=== PATIENT | female | born 1975 | race Two or more races ===

== ENCOUNTER 2018-06-05 07:50 | Outpatient (CLI) | payer OTHER ==
[~2018-06-05 07:50] MED LIST: SYNTHROID100 MCG PO; SYNTHROID112 MCG PO; SYNTHROID75 MCG PO; TOBRADEX EYE DR10 ML OP; ZOLOFT25 MG PO
== END 2018-06-05 07:55 | disposition home or self-care (01) ==
LOC: LAB 07:50
DX: E88.89 Other specified metabolic disorders (principal); Z12.31 Encounter for screening mammogram for malignant neoplasm of breast; Z12.11 Encounter for screening for malignant neoplasm of colon; E06.3 Autoimmune thyroiditis; E03.8 Other specified hypothyroidism; E04.1 Nontoxic single thyroid nodule; J45.20 Mild intermittent asthma, uncomplicated; E66.09 Other obesity due to excess calories

== ENCOUNTER 2019-11-08 07:57 | Outpatient (CLI) | payer OTHER | END 2019-11-08 08:03 | disposition home or self-care (01) | LOC: LAB 07:57 | PROVIDERS: ATTEND Internal Medicine Cardiovascular Disease | DX: E03.8 Other specified hypothyroidism (principal); I10 Essential (primary) hypertension; E11.9 Type 2 diabetes mellitus without complications; E78.2 Mixed hyperlipidemia; E55.9 Vitamin D deficiency, unspecified ==

== ENCOUNTER 2019-11-08 09:12 | Outpatient (CLI) | payer OTHER | END 2019-11-08 09:25 | disposition home or self-care (01) | LOC: MAMO-SONO 09:12 | PROVIDERS: ATTEND Internal Medicine Cardiovascular Disease | DX: Z12.31 Encounter for screening mammogram for malignant neoplasm of breast (principal); E03.8 Other specified hypothyroidism ==

== ENCOUNTER 2019-12-13 08:20 | Outpatient (CLI) | payer OTHER | END 2019-12-13 15:00 | disposition home or self-care (01) | LOC: PPH VACUNA 08:20 | DX: Z23 Encounter for immunization (principal) ==

== ENCOUNTER 2020-01-23 09:16 | Outpatient (CLI) | payer OTHER | END 2020-01-23 15:00 | disposition home or self-care (01) | LOC: LAB 09:16 | PROVIDERS: ATTEND Surgery | DX: E03.8 Other specified hypothyroidism (principal); E11.9 Type 2 diabetes mellitus without complications; E54 Ascorbic acid deficiency; E55.9 Vitamin D deficiency, unspecified; D51.8 Other vitamin B12 deficiency anemias; B96.81 Helicobacter pylori [H. pylori] as the cause of diseases classified elsewhere; E78.49 Other hyperlipidemia; D46.4 Refractory anemia, unspecified; G47.33 Obstructive sleep apnea (adult) (pediatric); R09.2 Respiratory arrest ==

== ENCOUNTER 2020-02-07 07:40 | Outpatient (CLI) | payer OTHER | END 2020-02-07 07:49 | disposition home or self-care (01) | LOC: SONOGRAMA 07:40 → MAMO-SONO 07:45 → SONOGRAMA 07:49 | PROVIDERS: ATTEND Surgery | DX: K76.0 Fatty (change of) liver, not elsewhere classified (principal) ==

== ENCOUNTER 2020-07-04 06:36 | Outpatient (CLI) | payer OTHER | END 2020-07-04 07:05 | disposition home or self-care (01) | LOC: RAD 06:36 → LAB 06:36 | PROVIDERS: ATTEND Internal Medicine Cardiovascular Disease | DX: I50.42 Chronic combined systolic (congestive) and diastolic (congestive) heart failure (principal); I20.8 Other forms of angina pectoris; R00.2 Palpitations; E66.01 Morbid (severe) obesity due to excess calories; M89.8X8 Other specified disorders of bone, other site; Z01.810 Encounter for preprocedural cardiovascular examination ==

== ENCOUNTER 2020-09-18 12:40 | Outpatient (CLI) | payer OTHER | END 2020-09-18 12:42 | disposition home or self-care (01) | LOC: LAB 12:40 | PROVIDERS: ATTEND Internal Medicine Pulmonary Disease | DX: J45.30 Mild persistent asthma, uncomplicated (principal); I50.42 Chronic combined systolic (congestive) and diastolic (congestive) heart failure; I20.9 Angina pectoris, unspecified; R00.2 Palpitations; E66.01 Morbid (severe) obesity due to excess calories; I20.8 Other forms of angina pectoris ==

== ENCOUNTER → 2020-11-20 08:05 | Outpatient (CLI) | payer OTHER | END | disposition home or self-care (01) | LOC: LAB 08:05 | PROVIDERS: ATTEND Surgery | DX: E03.8 Other specified hypothyroidism (principal); D46.4 Refractory anemia, unspecified; E11.9 Type 2 diabetes mellitus without complications; E55.9 Vitamin D deficiency, unspecified; D51.8 Other vitamin B12 deficiency anemias; R19.5 Other fecal abnormalities; Z11.59 Encounter for screening for other viral diseases; K29.60 Other gastritis without bleeding ==

== ENCOUNTER 2020-11-21 07:38 | Outpatient (CLI) | payer OTHER | END 2020-11-21 07:39 | disposition home or self-care (01) | LOC: LAB 07:38 | PROVIDERS: ATTEND Surgery | DX: K29.60 Other gastritis without bleeding (principal); Z11.59 Encounter for screening for other viral diseases ==

== ENCOUNTER 2020-11-21 07:39 | Outpatient (CLI) | payer OTHER | END 2020-11-21 07:44 | disposition home or self-care (01) | LOC: SONOGRAMA 07:39 | DX: R10.84 Generalized abdominal pain (principal); K76.0 Fatty (change of) liver, not elsewhere classified; R07.89 Other chest pain ==

== ENCOUNTER 2020-12-17 08:00 | Outpatient (CLI) | payer OTHER | END 2020-12-17 08:30 | disposition home or self-care (01) | LOC: PPH VACUNA 08:00 | PROVIDERS: ATTEND Emergency Medicine Pediatric Emergency Medicine | DX: Z23 Encounter for immunization (principal) ==

== ENCOUNTER 2020-12-20 10:59 | Outpatient (CLI) | payer OTHER | END 2020-12-20 11:04 | disposition home or self-care (01) | LOC: NUCLEAR 10:59 | PROVIDERS: ATTEND Obstetrics & Gynecology | DX: I82.403 Acute embolism and thrombosis of unspecified deep veins of lower extremity, bilateral (principal) ==

== ENCOUNTER → 2021-01-22 07:57 | Outpatient (CLI) | payer OTHER | END | disposition home or self-care (01) | LOC: LAB 07:57 | PROVIDERS: ATTEND Surgery | DX: E11.9 Type 2 diabetes mellitus without complications (principal); E03.8 Other specified hypothyroidism; D46.4 Refractory anemia, unspecified; E54 Ascorbic acid deficiency; E55.9 Vitamin D deficiency, unspecified; D51.9 Vitamin B12 deficiency anemia, unspecified; R19.5 Other fecal abnormalities; Z11.59 Encounter for screening for other viral diseases ==

== ENCOUNTER → 2021-01-23 08:18 | Outpatient (CLI) | payer OTHER | END | disposition home or self-care (01) | LOC: LAB 08:18 | PROVIDERS: ATTEND Surgery | DX: R19.5 Other fecal abnormalities (principal); E11.9 Type 2 diabetes mellitus without complications; D64.4 Congenital dyserythropoietic anemia; E03.8 Other specified hypothyroidism; E55.9 Vitamin D deficiency, unspecified; E54 Ascorbic acid deficiency; D51.8 Other vitamin B12 deficiency anemias; Z11.59 Encounter for screening for other viral diseases ==

== ENCOUNTER 2021-03-10 23:20 | Day surgery (SDC) | payer OTHER ==
[~2021-03-10] VITALS: Ht 149.9 cm; Wt 108.9 kg
[2021-03-10] MEDS ORDERED: SYNTHROID125 MCG (23:22)
[2021-03-11] MEDS ORDERED: MILK OF MA400 MG/5 M PO (15:32)
[2021-03-11] MEDS ORDERED: ANUSOL-HC30 G2 TOP (15:33)
== END 2021-03-11 19:00 | disposition home or self-care (01) ==
LOC: CIR.AMB 23:20 → ER 23:23 → CIR.AMB 03-11 08:00 → ER 03-11 11:53 → SEC-K 03-11 11:53 → CIR.AMB 03-11 11:53 → EDSTATUS 03-11 14:00 → CIR.AMB 03-11 19:00 → SEC-K 03-12 16:43 → O/R 03-12 16:43
PROVIDERS: ATTEND Surgery
DX: K56.41 Fecal impaction (principal); Z20.822 Contact with and (suspected) exposure to COVID-19

== ENCOUNTER 2021-11-18 09:15 | Outpatient (CLI) | payer OTHER ==
[~2021-11-18 09:15] MED LIST changes: +ANUSOL-HC30 G2 TOP; +MILK OF MA400 MG/5 M PO; +SYNTHROID125 MCG
== END 2021-11-18 09:17 | disposition home or self-care (01) ==
LOC: LAB 09:15
PROVIDERS: ATTEND Surgery
DX: D64.9 Anemia, unspecified (principal); E11.9 Type 2 diabetes mellitus without complications; E03.9 Hypothyroidism, unspecified; E54 Ascorbic acid deficiency; E55.9 Vitamin D deficiency, unspecified; D51.9 Vitamin B12 deficiency anemia, unspecified; B96.81 Helicobacter pylori [H. pylori] as the cause of diseases classified elsewhere

== ENCOUNTER 2021-12-11 15:07 | Outpatient (CLI) | payer OTHER | END 2021-12-11 15:12 | disposition home or self-care (01) | LOC: PPH VACUNA 15:07 | PROVIDERS: ATTEND Emergency Medicine Pediatric Emergency Medicine | DX: Z23 Encounter for immunization (principal) ==

== ENCOUNTER 2022-07-01 14:38 | Outpatient (CLI) | payer OTHER | END 2022-07-01 14:50 | disposition home or self-care (01) | LOC: SONOGRAMA 14:38 | PROVIDERS: ATTEND General Practice | DX: E06.3 Autoimmune thyroiditis (principal); E03.8 Other specified hypothyroidism; E04.0 Nontoxic diffuse goiter; Z68.33 Body mass index [BMI] 33.0-33.9, adult; Z98.84 Bariatric surgery status ==

== ENCOUNTER 2022-07-21 10:45 | Outpatient (CLI) | payer OTHER | END 2022-07-21 10:50 | disposition home or self-care (01) | LOC: LAB 10:45 | PROVIDERS: ATTEND General Practice | DX: E06.3 Autoimmune thyroiditis (principal); Z68.33 Body mass index [BMI] 33.0-33.9, adult; E04.0 Nontoxic diffuse goiter; Z98.84 Bariatric surgery status ==

== ENCOUNTER 2023-01-15 11:45 | Outpatient (CLI) | payer OTHER ==
[2023-01-15 12:43] LABS: HEMATOCRIT 40.6 % (36.0-45.00); HEMOGLOBIN 13.2 g/dL (12.0-15.00); MEAN CELL VOLUME 88.3 fL (80.00-100.00); MEAN CORPUSCULAR HEMOGLOBIN 28.8 pg (27.00-32.0); MEAN CORPUSCULAR HGB CONC 32.6 g/dl (32.0-36.0); PLATELET COUNT 311 K/uL (150-450); RED BLOOD COUNT 4.59 M/uL (4.00-6.00); RED CELL DISTRIBUTION WIDTH 14.6 % (11.5-14.5)
[2023-01-15 13:18] LABS: ALBUMIN 3.9 gm/dL (3.4-5.0); BILIRUBIN TOTAL 0.85 mg/dL (0.3-1.2); CALCIUM 8.9 mg/dL (8.5-10.1); CHOL HDL RATIO 2.4 (0-5.0); CREATININE SERUM 0.56 mg/dL (0.55-1.02); GFR 116.54; GLOBULINA 3.6 G/DL (2.4-3.5); POTASSIUM 4.66 mEq/L (3.5-5.1); T4 FREE 1.03 NG/ML (0.76-1.46); TOTAL PROTEIN 7.5 gm/dL (6.4-8.2); TSH 0.969 uIU/mL (0.358-3.74)
[2023-01-15 13:40] LABS: URINE APPEARANCE Cloudy; URINE BILIRRUBIN Negative (NEGATIVE); URINE BLOOD Negative; URINE COLOR Yellow; URINE GLUCOSE Negative (NEGATIVE); URINE LEUKOCYTE Small; URINE NITRATE Positive; URINE PROTEIN Negative (NEGATIVE)
[2023-01-15 13:41] LABS: URINE EPITHELIAL CELLS 32.3 uL (0.0-38.8); URINE RBC 56.1 uL (0.0-20.8); URINE WBC 138.5 uL (0.0-23.2)
[2023-01-15 13:43] LABS: URINE BACTERIA > 9821.2 uL (0.0-1933)
== END 2023-01-15 11:46 | disposition home or self-care (01) ==
LOC: LAB 11:45
PROVIDERS: ATTEND Specialist
DX: D50.9 Iron deficiency anemia, unspecified (principal); E83.51 Hypocalcemia; N39.0 Urinary tract infection, site not specified; E78.00 Pure hypercholesterolemia, unspecified; Z13.1 Encounter for screening for diabetes mellitus; E03.9 Hypothyroidism, unspecified; Z11.3 Encounter for screening for infections with a predominantly sexual mode of transmission

== ENCOUNTER 2023-01-15 12:40 | Outpatient (CLI) | payer OTHER | END 2023-01-15 13:10 | disposition home or self-care (01) | LOC: MAMO-SONO 12:40 | PROVIDERS: ATTEND Specialist | DX: R10.2 Pelvic and perineal pain (principal); Z12.31 Encounter for screening mammogram for malignant neoplasm of breast; N63.0 Unspecified lump in unspecified breast ==

== ENCOUNTER 2024-01-18 10:30 | Outpatient (CLI) | payer OTHER | END 2024-01-18 11:00 | disposition home or self-care (01) | LOC: PPH VACUNA 10:30 | PROVIDERS: ATTEND Emergency Medicine Pediatric Emergency Medicine | DX: Z23 Encounter for immunization (principal) ==

== ENCOUNTER → 2024-03-09 10:50 | Outpatient (CLI) | payer OTHER ==
[2024-03-09 11:55] LABS: HEMATOCRIT 37.2 % (36.0-45.00); HEMOGLOBIN 12.2 g/dL (12.0-15.00); MEAN CELL VOLUME 81.2 fL (80.00-100.00); MEAN CORPUSCULAR HEMOGLOBIN 26.6 pg (27.00-32.0); MEAN CORPUSCULAR HGB CONC 32.7 g/dl (32.0-36.0); PLATELET COUNT 327 K/uL (150-450); RED BLOOD COUNT 4.58 M/uL (4.00-6.00); RED CELL DISTRIBUTION WIDTH 16.2 % (11.5-14.5)
[2024-03-09 12:53] LABS: ALBUMIN 3.6 gm/dL (3.4-5.0); BILIRUBIN TOTAL 0.43 mg/dL (0.3-1.2); CALCIUM 8.5 mg/dL (8.5-10.1); CHOL HDL RATIO 2.7 (0-5.0); CREATININE SERUM 0.63 mg/dL (0.55-1.02); GFR 101.29; POTASSIUM 4.65 mEq/L (3.5-5.1); T4 TOTAL 8.13 UG/DL (4.8-13.9); TOTAL PROTEIN 7.6 gm/dL (6.4-8.2); TSH 1.48 uIU/mL (0.358-3.74)
[2024-03-09 13:29] LABS: T3 TOTAL 0.874 ng/ml (0.846-2.02); VITAMIN D3 25 HYDROXY 20.19 ng/ml (30-120)
[2024-03-09 18:39] LABS: PH,URINE 5.5 (5.0-8.0); URINE APPEARANCE Clear; URINE BILIRRUBIN Negative (NEGATIVE); URINE BLOOD Negative; URINE COLOR Dark Yellow; URINE GLUCOSE Negative (NEGATIVE); URINE KETONE Trace (NEGATIVE); URINE LEUKOCYTE Negative; URINE NITRATE Negative; URINE PROTEIN Trace (NEGATIVE)
[2024-03-09 18:43] LABS: URINE BACTERIA 1008.3 uL (0.0-1933); URINE EPITHELIAL CELLS 12.1 uL (0.0-38.8); URINE RBC 18.8 uL (0.0-20.8); URINE WBC 3.7 uL (0.0-23.2)
[2024-03-09 18:51] LABS: URINE CAST 0.14 uL (0.0-1.40)
== END | disposition home or self-care (01) ==
LOC: LAB 10:50
PROVIDERS: ATTEND Internal Medicine
DX: E11.9 Type 2 diabetes mellitus without complications (principal); E34.9 Endocrine disorder, unspecified; E07.9 Disorder of thyroid, unspecified; E55.9 Vitamin D deficiency, unspecified; E53.9 Vitamin B deficiency, unspecified; E78.5 Hyperlipidemia, unspecified; N30.00 Acute cystitis without hematuria; I10 Essential (primary) hypertension

== ENCOUNTER 2024-03-09 11:33 | Outpatient (CLI) | payer OTHER | END 2024-03-09 11:40 | disposition home or self-care (01) | LOC: SONOGRAMA 11:33 | PROVIDERS: ATTEND Internal Medicine | DX: E03.9 Hypothyroidism, unspecified (principal) ==

== ENCOUNTER 2024-04-01 15:28 | Outpatient (CLI) | payer OTHER | END 2024-04-01 15:35 | disposition home or self-care (01) | LOC: LAB 15:28 | PROVIDERS: ATTEND Preventive Medicine Occupational Medicine | DX: B19.10 Unspecified viral hepatitis B without hepatic coma (principal) ==

== ENCOUNTER 2024-06-16 12:39 | Outpatient (CLI) | payer OTHER ==
[2024-06-16 13:42] LABS: HEMATOCRIT 37.7 % (36.0-45.00); HEMOGLOBIN 12.2 g/dL (12.0-15.00); MEAN CELL VOLUME 79.4 fL (80.00-100.00); MEAN CORPUSCULAR HEMOGLOBIN 25.8 pg (27.00-32.0); MEAN CORPUSCULAR HGB CONC 32.5 g/dl (32.0-36.0); PLATELET COUNT 329 K/uL (150-450); RED BLOOD COUNT 4.75 M/uL (4.00-6.00); RED CELL DISTRIBUTION WIDTH 17.9 % (11.5-14.5)
[2024-06-16 13:50] LABS: ERYTHROCYTE SEDIMENTATION RATE 50 mm/hr
[2024-06-16 15:10] LABS: ALBUMIN 3.7 gm/dL (3.4-5.0); ALKALINE PHOSPHATASE 84 U/L (50-136); ALT/SGPT 34 U/L (12-78); AMYLASE 44 U/L (25-115); ANION GAP 9 (10.0-20.0); AST/SGOT 15 U/L (15-37); BILIRUBIN TOTAL 0.58 mg/dL (0.3-1.2); BLOOD UREA NITROGEN 9 mg/dL (7-18); BUN CREA RATIO 16 (7.0-25.0); CALCIUM 8.8 mg/dL (8.5-10.1); CARBON DIOXIDE 30 mEq/L (21-32); CHLORIDE 109 mmol/L (98-107); CHOL HDL RATIO 2.6 (0-5.0); CHOLESTEROL 156 mg/dL (0-200); CREATININE SERUM 0.58 mg/dL (0.55-1.02); FREE TRIODOTIRONINE 1.89 pg/ml (2.18-3.98); GFR 111.43; GLOBULINA 3.9 G/DL (2.4-3.5); GLUCOSE FASTING 85 mg/dL (65-100); HDL 60 mg/dl (40-60); LDL 84 mg/dl (0-130); LIPASE 38 U/L (13-75); OSMOLALITY SERUM 283 MOSM/KG (275-295); POTASSIUM 4.55 mEq/L (3.5-5.1); SODIUM 143 mmol/L (136-145); T4 TOTAL 7.27 UG/DL (4.8-13.9); TOTAL PROTEIN 7.6 gm/dL (6.4-8.2); TRIGLYCERIDES 58 mg/dL (0-150); VLDL 11 (0-39)
[2024-06-16 15:17] LABS: C-REACTIVE PROTEIN < 0.29 MG/DL (0.00-0.29)
[2024-06-16 19:17] LABS: PH,URINE 5.5 (5.0-8.0); URINE APPEARANCE Cloudy; URINE BILIRRUBIN Negative (NEGATIVE); URINE BLOOD Negative; URINE COLOR Yellow; URINE GLUCOSE Negative (NEGATIVE); URINE KETONE Trace (NEGATIVE); URINE LEUKOCYTE Trace; URINE NITRATE Negative; URINE PROTEIN Negative (NEGATIVE); URINE UROBILINOGEN 0.2 E.U./dl
[2024-06-16 19:18] LABS: URINE BACTERIA 3315.7 uL (0.0-1933); URINE EPITHELIAL CELLS 34.4 uL (0.0-38.8); URINE RBC 6.7 uL (0.0-20.8)
[2024-06-16 19:23] LABS: URINE CAST 0.29 uL (0.0-1.40)
== END 2024-06-16 12:40 | disposition home or self-care (01) ==
LOC: LAB 12:39
PROVIDERS: ATTEND Internal Medicine
DX: K29.70 Gastritis, unspecified, without bleeding (principal); C73 Malignant neoplasm of thyroid gland; E78.9 Disorder of lipoprotein metabolism, unspecified; E03.8 Other specified hypothyroidism; E66.9 Obesity, unspecified; E55.9 Vitamin D deficiency, unspecified; Z13.220 Encounter for screening for lipoid disorders; D64.9 Anemia, unspecified; Z00.00 Encounter for general adult medical examination without abnormal findings

== ENCOUNTER 2024-06-22 15:17 | Outpatient (CLI) | payer OTHER | END 2024-06-22 15:19 | disposition home or self-care (01) | LOC: LAB 15:17 | PROVIDERS: ATTEND Internal Medicine | DX: N39.0 Urinary tract infection, site not specified (principal); R50.9 Fever, unspecified ==

== ENCOUNTER 2024-09-06 06:34 | Outpatient (CLI) | payer OTHER ==
[2024-09-06 07:14] LABS: BASO % 0.9 % (0.1-1.2); EOS # 0.19 (0.04-0.54); EOS % 3.5 % (0.7-7.0); HEMATOCRIT 38.7 % (34.1-44.9); HEMOGLOBIN 12.5 g/dL (11.2-15.7); LYMPH # 1.65 (1.18-3.74); LYMPH % 30.6 % (19.3-53.1); MEAN CORPUSCULAR HEMOGLOBIN 25.7 pg (25.6-32.2); MONO # 0.61 (0.24-0.82); MONO % 11.3 % (4.7-12.5); NEUT # 2.88 (1.56-6.13); NEUT % 53.5 % (34.0-71.1); PLATELET COUNT 321 K/uL (163-369); RED BLOOD COUNT 4.86 M/uL (3.93-5.22); RED CELL DISTRIBUTION WIDTH 17.2 % (11.6-14.4)
[2024-09-06 07:48] LABS: CHOL HDL RATIO 1.9 (0-5.0)
== END 2024-09-06 06:44 | disposition home or self-care (01) ==
LOC: LAB 06:34
PROVIDERS: ATTEND Internal Medicine
DX: K29.70 Gastritis, unspecified, without bleeding (principal); E78.9 Disorder of lipoprotein metabolism, unspecified; C73 Malignant neoplasm of thyroid gland

== ENCOUNTER 2024-11-28 10:14 | Outpatient (CLI) | payer OTHER ==
[2024-11-28 10:43] LABS: BASO % 0.9 % (0.1-1.2); EOS # 0.22 (0.04-0.54); EOS % 4.7 % (0.7-7.0); LYMPH # 1.77 (1.18-3.74); LYMPH % 38.0 % (19.3-53.1); MEAN PLATELET VOLUME 10.20 fl (9.4-12.4); MONO # 0.49 (0.24-0.82); MONO % 10.5 % (4.7-12.5); NEUT # 2.13 (1.56-6.13); NEUT % 45.7 % (34.0-71.1); RED CELL DISTRIBUTION WIDTH 17.8 % (11.6-14.4)
[2024-11-28 11:51] LABS: ALT/SGPT 38.0 U/L (12-78); AST/SGOT 13.0 U/L (15-37); BILIRUBIN TOTAL 0.72 mg/dL (0.3-1.2); BUN CREA RATIO 19.0 (7.0-25.0); CHOL HDL RATIO 2.7 (0-5.0); CREATININE SERUM 0.59 mg/dL (0.55-1.02); FREE TRIODOTIRONINE 2.19 pg/ml (2.18-3.98); GFR 108.79; GLOBULINA 3.7 G/DL (2.4-3.5); GLUCOSE FASTING 85.0 mg/dL (65-100); HDL 60.0 mg/dl (40-60); LDL 90.0 mg/dl (0-130); OSMOLALITY SERUM 280.0 MOSM/KG (275-295); T4 FREE 1.19 NG/ML (0.76-1.46); TSH 0.755 uIU/mL (0.358-3.74); VLDL 11.0 (0-39)
== END 2024-11-28 10:15 | disposition home or self-care (01) ==
LOC: LAB 10:14
PROVIDERS: ATTEND Internal Medicine
DX: K29.70 Gastritis, unspecified, without bleeding (principal); C73 Malignant neoplasm of thyroid gland; E78.9 Disorder of lipoprotein metabolism, unspecified; E03.9 Hypothyroidism, unspecified

== ENCOUNTER 2025-01-24 10:10 | Outpatient (CLI) | payer OTHER | END 2025-01-24 10:20 | disposition home or self-care (01) | LOC: PPH VACUNA 10:10 | PROVIDERS: ATTEND Emergency Medicine Pediatric Emergency Medicine | DX: Z23 Encounter for immunization (principal) ==

== ENCOUNTER 2025-02-15 06:39 | Outpatient (CLI) | payer OTHER ==
[2025-02-15 07:21] LABS: BASO % 1.3 % (0.1-1.2); EOS # 0.19 (0.04-0.54); EOS % 3.6 % (0.7-7.0); LYMPH # 1.95 (1.18-3.74); LYMPH % 36.9 % (19.3-53.1); MEAN PLATELET VOLUME 10.60 fl (9.4-12.4); MONO # 0.44 (0.24-0.82); MONO % 8.3 % (4.7-12.5); NEUT # 2.63 (1.56-6.13); NEUT % 49.7 % (34.0-71.1); RED CELL DISTRIBUTION WIDTH 15.9 % (11.6-14.4)
[2025-02-15 08:11] LABS: ALT/SGPT 29.0 U/L (12-78); AST/SGOT 10.0 U/L (15-37); BILIRUBIN TOTAL 0.47 mg/dL (0.3-1.2); BUN CREA RATIO 24.0 (7.0-25.0); CHOL HDL RATIO 2.3 (0-5.0); CREATININE SERUM 0.54 mg/dL (0.55-1.02); GFR 120.5; GLOBULINA 3.6 G/DL (2.4-3.5); GLUCOSE FASTING 90.0 mg/dL (65-100); HDL 67.0 mg/dl (40-60); LDL 80.0 mg/dl (0-130); OSMOLALITY SERUM 281.0 MOSM/KG (275-295); T4 FREE 1.17 NG/ML (0.76-1.46); TSH 0.581 uIU/mL (0.358-3.74); VLDL 10.0 (0-39)
[2025-02-16 10:11] LABS: LEUTEINIZING HORMONE 39.3 mIU/mL (.); PROGESTERONA 1.1 ng/mL (.)
[2025-02-16 12:07] LABS: CALCIUM IONIZED 5.1 mg/dL (4.5-5.6); ESTRADIOL SERUM 213.0 pg/mL (.)
== END 2025-02-15 06:47 | disposition home or self-care (01) ==
LOC: LAB 06:39
DX: E03.9 Hypothyroidism, unspecified (principal); E78.9 Disorder of lipoprotein metabolism, unspecified; C73 Malignant neoplasm of thyroid gland; K29.30 Chronic superficial gastritis without bleeding; E28.39 Other primary ovarian failure; E28.310 Symptomatic premature menopause; N97.0 Female infertility associated with anovulation